=== PATIENT | male | born 1995 | race African-American/Black ===

== ENCOUNTER 2019-07-12 08:22 | Emergency (ER) | payer OTHER, SELFPAY ==
[2019-07-12 08:29] VITALS: BP 141/87; PULSE 68; RESP 18; TEMP 36.9; O2SAT 99; BMI 30.2
--- NOTE | 2019-07-12 08:33 | PC.NURSE ---
airway patent, speaks and responds appropriately, skin warm dry pink. able to swallow, no drooling noted. skin warm dry pink. denies fever,coughing,shortness of breath, rash.
--- NOTE | 2019-07-12 08:36 | ED_ITS ---
HPI - Dental/Oral General Chief complaint: Dental/Oral Stated complaint: swelling dangle in back of throat Time Seen by Provider: 07/12/19 08:35 Source: patient Mode of arrival: Ambulatory Limitations: no limitations History of Present Illness HPI Narrative: This is a 23-year-old male who comes to the emergency department with complaint of swelling of his uvula. Patient states he has had 1 episode before several years ago. He states that he was treated with steroids resolved after 2 days but he has not had any distal symptoms since. At that time they thought he had maybe eaten something that caused his symptoms. He states he did have a new kind of meat and blood orange which is a fruit he has not had before when was at [employer] yesterday. Patient denies any other symptoms. He states that it is a little irritated particularly when it hits the back of his tongue but denies any other pain. He has not had fevers. He has not appreciated any other swelling of his lips, tongue or oropharynx other than his uvula. Patient has not had any change in his voice. He does not feel like he is having any difficulty breathing. He denies any other medical issues, no prior surgery. He denies any known drug allergies and is not aware of any food allergies or other causes of his symptoms. He is not on any medications. He does smoke tobacco. He is here with his Related Data Previous Rx's Medication Instructions Recorded prednisone See Rx Instructions .ROUTE 07/12/19 .COMPLEX #15 each Allergies Allergy/AdvReac Type Severity Reaction Status Date / Time No Known Drug Allergies Allergy Verified 07/12/19 08:29 Review of Systems Review of Systems ROS Unobtainable: All systems reviewed & are unremarkable except as noted in HPI and below Patient History Social History Smoking Status: Current every day smoker Smoking Status: Current every day smoker tobacco type: cigarettes Alcohol type: beer Substance Use Type: does not use Exam Narrative Exam Narrative: GEN: well nourished, well appearing male, alert and oriented x 3, patient appears to be in mild distress. HEENT: Atraumatic, pupils are equal round reactive to light, extraocular movements are intact, nares are clear. Uvula is slightly swollen and appears to be swollen more lengthwise than widthwise, it is midline, very mild erythema, patient does not have any tonsillar swelling, no other erythema is appreciated, no exudate or ulcerations or lesions noted. No muffled or hoarse voice. No difficulty swallowing secretions. HEART: Regular rate and rhythm without murmur, clicks, rubs. LUNGS:Lungs clear to auscultation, no wheezes, rales, crackles, chest moves symmetrically ABD:bowel sounds normal, soft, non-tender, no guarding, rebound, rigidity, no masses noted, no hepatosplenomegaly MSCL: Non-tender, full range of motion, normal gait NEURO:CN 2-12 intact, sensation normal Initial Vital Signs Initial Vital Signs: Vital Signs Temperature 98.4 F 07/12/19 08:29 Pulse Rate 68 07/12/19 08:29 Respiratory Rate 18 07/12/19 08:29 Blood Pressure 141/87 H 07/12/19 08:29 Pulse Oximetry 99 07/12/19 08:29 Course Orders Ordered: Discontinued Medications Diphenhydramine HCl (Benadryl) 50 mg PO NOW ONE Stop: 07/12/19 08:56 Last Admin: 07/12/19 09:16 Dose: 50 mg Documented by: GHANSHYAM Prednisone (Deltasone) 60 mg PO NOW ONE Stop: 07/12/19 08:55 Last Admin: 07/12/19 09:16 Dose: 60 mg Documented by: GHANSHYAM Vital Signs Vital signs: Vital Signs - 8 hr 07/12/19 08:29 Temperature 98.4 F Pulse Rate 68 Respiratory Rate 18 Blood Pressure 141/87 H Pulse Oximetry 99 MDM - Dental/Oral MDM Narrative Medical decision making narrative: Patient has had similar symptoms in the past. He states that he woke up this morning with his symptoms. He states he responded to steroids on his last episode. Patient does not have any airway impingement at this time. This is his 2nd episode, no infectious cause is likely at this time. We did discuss he would benefit from following up with his primary care and we discussed strict return precautions and reasons to return if he is having worsening symptoms. Discharge Plan Departure Patient Disposition: Home Clinical Impression: Uvulitis Discharge Date/Time: 07/12/19 09:22 Instructions: DI for Uvulitis Activity Restrictions/Additional Instructions: [facility] up [facility] as this is your second episode. They may wish to do some additional follow up testing. Take steroids once daily until gone. You received your first dose in the emergency department, start your prescription tomorrow You may also take benadryl 1-2 tablets (25-50mg) every 8 hours as needed for symptoms. Return to ER for worsening swelling of your uvula, swelling of your lips, tongue, airway or throat, muffled voice, difficulty swallowing, fevers greater 100.4 F, increasing pain or other new or concerning symptoms. Prescriptions: New prednisone 10 mg tablets,dose pack See Rx Instructions .ROUTE .COMPLEX Qty: 15 RF: 0
[2019-07-12] MEDS: diphenhydrAMINE 25 MG TABLET 50 MG PO (09:16)
[2019-07-12] MEDS: predniSONE 20 MG TABLET 60 MG PO (09:16)
== END 2019-07-12 09:22 | disposition home or self-care (01) ==
PROVIDERS: Emergency Provider Emergency Medicine
DX: K12.2 Cellulitis and abscess of mouth (principal)
CPT/HCPCS: 99283